=== PATIENT | female | born 1940 | race Caucasian/White ===

== ENCOUNTER 2016-10-22 13:15 | Outpatient (RCR) | payer MEDICARE, BC | END 2016-10-27 | disposition still patient (30) | LOC: WSPT | DX: I89.0 Lymphedema, not elsewhere classified (principal) | CPT/HCPCS: G8987-GP; G8988-GP ==

== ENCOUNTER 2017-01-19 10:45 | Outpatient (RCR) | payer MEDICARE, BC | END 2017-01-27 | disposition home or self-care (01) | LOC: WSPT | DX: I89.0 Lymphedema, not elsewhere classified (principal) | CPT/HCPCS: G8987-GP; G8988-GP ==

== ENCOUNTER 2017-02-11 12:15 | Outpatient (RCR) | payer MEDICARE, BC | END 2017-05-03 | disposition still patient (30) | LOC: WSPT | DX: Z48.815 Encounter for surgical aftercare following surgery on the digestive system (principal); I89.0 Lymphedema, not elsewhere classified; Z90.49 Acquired absence of other specified parts of digestive tract ==

== ENCOUNTER 2017-11-09 12:30 | Outpatient (RCR) | payer MEDICARE, BC | END 2017-11-10 | LOC: WSPT | DX: I89.0 Lymphedema, not elsewhere classified (principal); Z90.89 Acquired absence of other organs | CPT/HCPCS: G8987-GP; G8988-GP ==

== ENCOUNTER → 2017-12-16 | Outpatient (CLI) | payer MEDICARE, BC | LOC: COL.RAD 08:53 | DX: R91.8 Other nonspecific abnormal finding of lung field (principal); K76.9 Liver disease, unspecified; Z98.890 Other specified postprocedural states; Z90.11 Acquired absence of right breast and nipple | CPT/HCPCS: A9503; Q9967 ==

== ENCOUNTER 2018-02-18 10:24 | Outpatient (RCR) | payer MEDICARE, BC | END 2018-02-22 10:06 | disposition home or self-care (01) | LOC: WSPT 10:24 | DX: R60.0 Localized edema (principal); C78.02 Secondary malignant neoplasm of left lung; Z85.3 Personal history of malignant neoplasm of breast; Z87.891 Personal history of nicotine dependence | CPT/HCPCS: G8988-GP; G8989-GP ==

== ENCOUNTER 2018-04-19 09:45 | Outpatient (RCR) | payer MEDICARE, BC | END 2018-07-08 | disposition home or self-care (01) | LOC: WSPT | DX: I89.0 Lymphedema, not elsewhere classified (principal); Z85.3 Personal history of malignant neoplasm of breast; Z90.11 Acquired absence of right breast and nipple; Z92.3 Personal history of irradiation; D49.6 Neoplasm of unspecified behavior of brain; C34.90 Malignant neoplasm of unspecified part of unspecified bronchus or lung | CPT/HCPCS: G8987-GP; G8988-GP; G8989-GP ==

== ENCOUNTER → 2018-06-16 | Outpatient (CLI) | payer MEDICARE, BC | LOC: COL.RAD 12:36 | DX: C34.92 Malignant neoplasm of unspecified part of left bronchus or lung (principal); J90 Pleural effusion, not elsewhere classified; F41.9 Anxiety disorder, unspecified; J18.1 Lobar pneumonia, unspecified organism; R91.8 Other nonspecific abnormal finding of lung field; Z92.3 Personal history of irradiation; Z95.828 Presence of other vascular implants and grafts | CPT/HCPCS: Q9967 ==

== ENCOUNTER → 2018-07-30 | Outpatient (CLI) | payer MEDICARE, BC ==
[~2018-07-30] VITALS: Ht 154.9 cm; Wt 58.3 kg
[~2018-07-30] MED LIST: CARAFATE 1GM1 G PO; CLARITIN 1010 MG/TAB PO; FEMARA PO; K-DUR 10 MEQ T10 MEQ PO; LOZOL1.25 MG PO; PRILOSEC 20MG20 MG PO; SYNTHROID 0.0.025 MG PO; SYSTANE 0.4%-0.1 SOL OP; TOPROL XL 25MG25 MG PO; TRENTAL 400MG400 MG PO; VITAMIN B-6100 MG PO; VITAMINE200 PO; XANAX 0.5MG0.5 MG PO
[2018-07-30 14:01] VITALS: BP 124/69; PULSE 72
[2018-07-30 15:44] VITALS: BP 1254/65; PULSE 67
== END ==
LOC: COL.RAD 13:27
DX: C34.02 Malignant neoplasm of left main bronchus (principal); R22.31 Localized swelling, mass and lump, right upper limb

== ENCOUNTER 2018-10-20 10:45 | Outpatient (RCR) | payer MEDICARE, BC | END 2018-11-01 | disposition home or self-care (01) | LOC: WSPT | DX: I89.0 Lymphedema, not elsewhere classified (principal) | CPT/HCPCS: G8987-GP; G8988-GP ==

== ENCOUNTER 2019-01-26 12:45 | Outpatient (RCR) | payer MEDICARE, BC | END 2019-02-01 | disposition home or self-care (01) | LOC: WSPT | DX: I89.0 Lymphedema, not elsewhere classified (principal); Z85.9 Personal history of malignant neoplasm, unspecified; Z90.89 Acquired absence of other organs; Z92.21 Personal history of antineoplastic chemotherapy ==

== ENCOUNTER 2019-02-08 11:22 | Outpatient (CLI) | payer MEDICARE, BC ==
[2019-02-08] VITALS (10 sets, daily range): BP systolic 112–134; BP diastolic 58–99; PULSE 56–68; TEMP 97.7–97.9
[~2019-02-08] VITALS: Ht 154.9 cm; Wt 67.2 kg
[2019-02-08 12:24] LABS: IRON,SERUM 48 ug/dL (35-150)
[2019-02-08 12:34] LABS: TOTAL IRON BINDING CAPACITY 331 ug/dL (265-497)
[2019-02-08 13:01] LABS: FERRITIN 210 ng/mL (11-264)
== END 2019-02-08 16:18 | disposition home or self-care (01) ==
LOC: EUO 11:22
PROVIDERS: Internal Medicine Medical Oncology
DX: C34.02 Malignant neoplasm of left main bronchus (principal)
CPT/HCPCS: J1644; J7050; P9016

== ENCOUNTER 2019-04-05 11:20 | Inpatient (IN) | payer MEDICARE, BC ==
[~2019-04-05] VITALS: Ht 152.4 cm; Wt 66.7 kg
[2019-04-05] VITALS (143 sets, daily range): BP systolic 81–129; BP diastolic 51–80; PULSE 85–98; TEMP 97.5–98.2; O2SAT 73–100
[2019-04-05 12:21] LABS: HEMOGLOBIN 11.4 g/dl (12.5-16.0); MEAN CELL VOLUME 85 fl (80.0-100.0); MEAN CORPUSCULAR HEMOGLOBIN 29 pg (27.0-31.0); MEAN CORPUSCULAR HGB CONC 34 g/dl (33.0-37.0); MEAN PLATELET VOLUME 8.6 fl (7.4-10.4); PLATELET COUNT 132 K/mm3 (130-400); RED BLOOD COUNT 3.88 M/mm3 (4.10-5.30)
[2019-04-05 12:24] LABS: HEMATOCRIT 33.1 % (37.0-47.0)
[2019-04-05 12:29] LABS: ALANINE AMINOTRANSFERASE 18 U/L (9-52); ALBUMIN 3.3 gm/dL (3.5-5.0); ALKALINE PHOSPHATASE 84 U/L (50-136); ANION GAP 11 mmol/L (7-16); AST,SGOT 32 U/L (15-37); BILIRUBIN,TOTAL 0.5 mg/dL (0.0-1.0); BLOOD UREA NITROGEN 25 mg/dL (7-17); CALCIUM 8.8 mg/dL (8.4-10.2); CARBON DIOXIDE 23 mmol/L (22-30); CHLORIDE 95 mmol/L (98-107); CREATININE, serum 1.21 (0.52-1.25); GLUCOSE 115 mg/dL (74-106); LIPASE 19 U/L (23-300); POTASSIUM 3.9 mmol/L (3.4-5.0); SODIUM 130 mmol/L (137-145); TOTAL PROTEIN 6.1 gm/dL (6.4-8.2)
[2019-04-05 12:38] LABS: TROPONIN-I < 0.012 ng/mL (0.000-0.035)
[2019-04-05 12:39] LABS: C-REACTIVE PROTEIN 24.9 mg/dL (0.0-0.9)
[2019-04-05 12:43] LABS: COLLECTION METHOD CATHETER
[2019-04-05 12:47] LABS: BAND 34 % (0-10); LYMPHOCYTE 1 % (20.0-51.0); NEUTROPHILS 60 % (42.0-75.2)
[2019-04-05 12:50] LABS: ANISOCYTOSIS 1+; MICROCYTOSIS 1+; PLATELET ESTIMATE NORMAL (NORMAL)
[2019-04-05 13:00] LABS: MUCOUS Present /lpf; PH 5 (5-8); SQUAMOUS EPITHELIAL 0-2 /hpf; URINE APPEARANCE Hazy; URINE BACTERIA None Seen /hpf; URINE BILIRUBIN Negative (NEGATIVE); URINE BLOOD 2+ (NEGATIVE); URINE COLOR Yellow; URINE GLUCOSE Negative (NEGATIVE); URINE KETONE Negative (NEGATIVE); URINE LEUKOCYTE ESTERASE Negative (NEGATIVE); URINE NITRATE Negative (NEGATIVE); URINE PROTEIN(semi-quant) Negative (NEGATIVE); URINE UROBILINOGEN Negative (NEGATIVE)
--- NOTE | 2019-04-05 15:30 | NUR ---
Pt arrived via ER cart. Pt "too weak to slide over to other bed" - pt transfered using draw sheet without complications. Hypotension noted. Levophed gtt order confirmed. Pt accompanied with Hilario. Pt states she had a "fall with a soft landing the other day because I have been so weak the last few days and I dont know why". Pt denies recent travel, exposure to ill people and fevers. Pt educated to call if need to use restroom or get out of bed d/t existing weakness - pt verbally agrees, pt properlly demonstrates use of call light.
--- NOTE | 2019-04-05 17:00 | NUR ---
MD Baljit and MD Genevieve both at bedside assessing pt.
[2019-04-05 19:19] LABS: SALICYLATE < 1.0 mg/dL
--- NOTE | 2019-04-05 19:20 | NUR ---
Bedside report received from PRISCILLA Ventura. All lines and medications reviewed. Transfer of care at this time.
[2019-04-05 19:21] LABS: TROPONIN-I 0.228 ng/mL (0.000-0.035)
--- NOTE | 2019-04-05 20:00 | NUR ---
Assessment complete. Patient is awake and alert and oriented. at bedside. Lung sounds are clear with diminished bases. HR and rhythm are regular with normal S1 and S2 heard. Bowel sounds are hypoactive. Vitals are stable, will attempt to decrease levophed as long as pressures hold. Patient has eaten about half of her dinner. No complaints of nausea. Patient does have complaints of pain at 5/10 generalized ache. Not requesting any pain medication at this time. No other signs of distress. Adjusted CVP tubing and zeroed. CVP sitting at 8 consistently. Patient has no further needs at this time. Will continue to monitor. Call light within reach.
[2019-04-05] MEDS ORDERED: FERRO-TIME325 MG PO (20:01)
[2019-04-05] MEDS ORDERED: NEURONTIN600 MG/TAB PO (20:02)
[2019-04-05] MEDS ORDERED: CELEXA10 MG PO (20:03)
[2019-04-05] MEDS ORDERED: MOTRIN 200200 MG/TAB PO (20:07)
[2019-04-05] MEDS ORDERED: MUCUS RELIEF400 M1 PO (20:08)
[2019-04-05] MEDS ORDERED: NATURAL E400 IU PO (20:09)
[2019-04-05] MEDS ORDERED: VITAMIN C500 MG PO (20:10)
[2019-04-05] MEDS ORDERED: VITAMIN B-6100 MG PO (20:11)
[2019-04-05] MEDS ORDERED: SYSTANE 0.4%-0.1 SOL OP (20:26)
[2019-04-05] MEDS ORDERED: SYSTANE GEL EYE10 ML OP (20:27)
[2019-04-06] VITALS (312 sets, daily range): BP systolic 96–138; BP diastolic 60–90; PULSE 73–92; TEMP 97.5–98; O2SAT 82–100
--- NOTE | 2019-04-06 | NUR ---
Patient awake at this time. Alert and oriented. No complaints of any new pain, just her normal generalized ache. Patient is not requesting medications for that. Assessment complete. No changes from previous exam except that her bowel sounds are more active now than what they had been previously. Patient up to the commode with an assist of 1. Patient has had good urine output so far this shift. Vitals have remained stable. Will continue to decrease levophed as blood pressure allows. No further needs at this time. Will continue to monitor. Call light within reach.
--- NOTE | 2019-04-06 04:00 | NUR ---
Patient awake at this time and requesting to use the restroom. Assisted patient up to the commode. Returns to bed. Assessment complete. No changes from previous exam except that bowel sounds are now hyperactive. Vitals have remained stable. Levophed shut off at this time. No further needs. Will continue to monitor. Call light within reach.
[2019-04-06 05:13] LABS: MEAN CELL VOLUME 89 fl (80.0-100.0); MEAN CORPUSCULAR HGB CONC 34 g/dl (33.0-37.0); PLATELET COUNT 82 K/mm3 (130-400); RED BLOOD COUNT 3.33 M/mm3 (4.10-5.30); REDCELL DISTRIBUTION WIDTH-CV 15.3 % (11.5-14.5)
[2019-04-06 05:18] LABS: HEMATOCRIT 29.5 % (37.0-47.0); HEMOGLOBIN 9.9 g/dl (12.5-16.0); MEAN CORPUSCULAR HEMOGLOBIN 30 pg (27.0-31.0)
[2019-04-06 05:21] LABS: INR 1.6 (0.8-3.0); PROTHROMBIN TIME 18.5 SECONDS (9.7-12.8)
[2019-04-06 05:22] LABS: ALBUMIN 2.6 gm/dL (3.5-5.0); BILIRUBIN,TOTAL 0.4 mg/dL (0.0-1.0); CALCIUM 7.6 mg/dL (8.4-10.2); CREATININE, serum 1.09 (0.52-1.25); MAGNESIUM 1.6 mg/dL (1.6-2.3); POTASSIUM 3.6 mmol/L (3.4-5.0); TOTAL PROTEIN 5.1 gm/dL (6.4-8.2)
--- NOTE | 2019-04-06 05:35 | NUR ---
Dr Smilye in to see patient at this time.
[2019-04-06 05:39] LABS: ANISOCYTOSIS 1+; BAND 54 % (0-10); METAMYELOCYTE 2 % (0-0); NEUTROPHILS 41 % (42.0-75.2); PLATELET ESTIMATE DECREASED (NORMAL)
[2019-04-06 05:40] LABS: BURR CELLS 1+; OVALOCYTES 1+
[2019-04-06 05:51] LABS: TSH w REFLEX 0.49 uIU/mL (0.465-4.680)
--- NOTE | 2019-04-06 07:00 | NUR ---
CVP monitoring transducing through Midline IV access upon arrival - monitoring discontinued through that IV
--- NOTE | 2019-04-06 07:25 | NUR ---
Beside report given to PRISCILLA Ventura. Reviewed all lines and medications. Transfer of care.
--- NOTE | 2019-04-06 08:00 | NUR ---
Angelika Galindo, called regarding pt's chemotherapy drug for proper protocols. No chemo precautions other than single glove use and standard precautions required
--- NOTE | 2019-04-06 09:00 | NUR ---
MD Raquel unable to be reached by phone for ID consultation
--- NOTE | 2019-04-06 10:54 | NUR ---
SW attended clinical rounds to discuss discharge planning. Patient reports she lives independently at home with her . Patient's PCP is Dr Carroll and she obtains prescriptions from [facility]. Patient reports she uses a walking stick due to balance issues but no other DME is used and patient does not have any home health services. Patient will be seen by PT and OT. SW will wait for PT/OT recommendations. SW heri continue to follow.
--- NOTE | 2019-04-06 12:00 | NUR ---
1154: Kelli from ultrasound called requesting MRI imaging from [facility] requested by MD Rika. 1209: COLE Fierro called with MRI results and notified that records are being obtained from [facility] by Kelli per MD Rika request.
--- NOTE | 2019-04-06 14:41 | NUR ---
MD Raquel still unable to be reached for ID consultation
--- NOTE | 2019-04-06 14:49 | NUR ---
MD Frank called to see if MRI imaging available in [facility] for comparison - will look into it
--- NOTE | 2019-04-06 15:41 | NUR ---
MD Raquel called back and updated on pt
--- NOTE | 2019-04-06 19:20 | NUR ---
Report received by Regina العلي RN. Pt on the telephone at this time with spouse at bedside.
[2019-04-06 19:51] LABS: MEAN CELL VOLUME 88 fl (80.0-100.0); MEAN CORPUSCULAR HGB CONC 34 g/dl (33.0-37.0); MEAN PLATELET VOLUME 10.1 fl (7.4-10.4); PLATELET COUNT 94 K/mm3 (130-400); REDCELL DISTRIBUTION WIDTH-CV 15.4 % (11.5-14.5)
[2019-04-06 20:00] LABS: HEMOGLOBIN 9.8 g/dl (12.5-16.0); MEAN CORPUSCULAR HEMOGLOBIN 30 pg (27.0-31.0)
--- NOTE | 2019-04-06 20:00 | NUR ---
Pt assessment complete at this time. Pt requested use of the bedside commode. Reported left sided weakness in the upper and lower extremities although transfer and standing was steady. Pt was able to move left arm up with assistance of the right arm and then hold left arm with out assistance in the air. Left leg was noted to have slight movements on the bed but pt was unable to lift it off the bed when assessed. No deficits noted to the right side at this time. Pt requested to do personal pericare following use of the commode with nurse standing near pt for assistance when requested. Pt was noted to be wiping from back to front so a discussion was had with pt about need to wipe from front to back. Pt was assisted back into bed. Pt requested Ibuprofen at this time. Pt was notified of need to get doctors permission. Will follow up.
--- NOTE | 2019-04-06 21:30 | NUR ---
Pt was asked if left sided facial drooping was apart of baseline following parotid tumor removal. When pt smiles pts mouth is symetrical although asymetry as been noted when pts face is relaxed. Pt reported yes due to the nerves in the face "being replaced from my leg". Pt was noted to dab the left side of mouth intermittently so far this shift with kleenex.
--- NOTE | 2019-04-06 22:57 | NUR ---
Pt daughter Steffany called for an update. Specific questions were encouraged as well as an update to this nurse on what pt update had been received last. Questions regarding source of infection, pt prognosis and if any new studies returned from today. Pts daughter was able to provide the 4 digit passcode for verification to provide information. Was updated on second set of blood cultures with unknown source of infection. Possible plan for FAUZIA if second set of blood cultures returned positive. MRI completed today although physician has not discussed findings with family with likelyhood of that occuring tomorrow. Pts blood pressure has improved. Pt remains afebrile. Pt prognosis was unable to answer, will need to direct that question to physicians although daughter was reassured that we are doing everything needed in order to take care of the infection itself with use of antibiotics. Daughter thanked this nurse for time and answering questions and patients room phone number was provided.
[2019-04-07] VITALS (1062 sets, daily range): BP systolic 133–150; BP diastolic 74–96; PULSE 82–107; TEMP 97.6–98.6; O2SAT 76–100
[2019-04-07 05:28] LABS: MEAN CELL VOLUME 87 fl (80.0-100.0); MEAN CORPUSCULAR HGB CONC 34 g/dl (33.0-37.0); MEAN PLATELET VOLUME 9.5 fl (7.4-10.4); PLATELET COUNT 81 K/mm3 (130-400); RED BLOOD COUNT 3.18 M/mm3 (4.10-5.30); REDCELL DISTRIBUTION WIDTH-CV 15.5 % (11.5-14.5)
[2019-04-07 05:33] LABS: HEMATOCRIT 27.7 % (37.0-47.0); HEMOGLOBIN 9.4 g/dl (12.5-16.0); MEAN CORPUSCULAR HEMOGLOBIN 30 pg (27.0-31.0)
[2019-04-07 05:35] LABS: PROTHROMBIN TIME 11.9 SECONDS (9.7-12.8)
[2019-04-07 05:39] LABS: ALBUMIN 2.5 gm/dL (3.5-5.0); BILIRUBIN,TOTAL 0.3 mg/dL (0.0-1.0); CALCIUM 7.9 mg/dL (8.4-10.2); CREATININE, serum 0.8 (0.52-1.25); POTASSIUM 3.2 mmol/L (3.4-5.0)
[2019-04-07 05:42] LABS: BAND 34 % (0-10); LYMPHOCYTE 3 % (20.0-51.0); METAMYELOCYTE 2 % (0-0); NEUTROPHILS 59 % (42.0-75.2); PLATELET ESTIMATE DECREASED (NORMAL)
--- NOTE | 2019-04-07 07:15 | NUR ---
Bedside shift report received from PRISCILLA Yoder. Patient is awake, alert, and responds appropriately. Full assessment completed. Call light and personal items within reach. Bed in lowest position.
--- NOTE | 2019-04-07 07:20 | NUR ---
Bedside report provided to Diane WELLS. Pt resting in bed at this time with television on and sunglasses on which pt has had in place all night in order to "block out the light and keep the air from making dry eyes worse".
--- NOTE | 2019-04-07 10:42 | NUR ---
Initial visit attempt; No response from patient; Gin Inspector said a blessings.
--- NOTE | 2019-04-07 11:00 | NUR ---
SW attended clinical rounds. Patient was seen by PT/OT. They report that patient may require post acute rehab. SW reported this information to patient and provided the Medicare.gov resource list for intermediate facilities. SW will continue to follow.
--- NOTE | 2019-04-07 12:00 | NUR ---
Patient drinks entire vanilla Ensure as a snack. Patient states she will eat lunch a little later.
--- NOTE | 2019-04-07 19:00 | NUR ---
Bedside shift report given to PRISCILLA Yoder. Patient is sitting up in bed with complaints of left hand pain and would like some Tylenol. Other than that, patient has no complaints or concerns and is in no apparent distress at this time. Call light and person items within reach. Bed in lowest position.
--- NOTE | 2019-04-07 19:00 | NUR ---
Bedside report received from Diane WELLS. Pt resting at this time in bed with spouse at bedside. Pt has sunglasses on and is able to make wants and needs known to staff members. Pt requested an ensure at this time although plan was discussed to take a Carafate, due to having an empty stomach at this time prior to consumption.
[2019-04-08] VITALS (293 sets, daily range): BP systolic 115–150; BP diastolic 62–93; PULSE 75–101; TEMP 97.6–98.6; O2SAT 86–100
--- NOTE | 2019-04-08 | NUR ---
Pt has demonstrated ability to make wants and needs known to staff with use of call light so far this shift. Is resting in bed at this time.
--- NOTE | 2019-04-08 03:00 | NUR ---
Pt is resting in bed sleeping. When this nurse has entered the room for various reasons/ cares pt will arouse to name and follow directions although appears to fall back asleep very quickly following.
[2019-04-08 05:25] LABS: HEMOGLOBIN 10.4 g/dl (12.5-16.0); MEAN CELL VOLUME 87 fl (80.0-100.0); MEAN CORPUSCULAR HEMOGLOBIN 29 pg (27.0-31.0); MEAN CORPUSCULAR HGB CONC 33 g/dl (33.0-37.0); MEAN PLATELET VOLUME 9.2 fl (7.4-10.4); PLATELET COUNT 108 K/mm3 (130-400); RED BLOOD COUNT 3.62 M/mm3 (4.10-5.30); REDCELL DISTRIBUTION WIDTH-CV 15.7 % (11.5-14.5)
[2019-04-08 05:29] LABS: INR 0.9 (0.8-3.0); PROTHROMBIN TIME 10.9 SECONDS (9.7-12.8)
[2019-04-08 05:34] LABS: ALBUMIN 2.8 gm/dL (3.5-5.0); BILIRUBIN,TOTAL 0.4 mg/dL (0.0-1.0); CALCIUM 8.5 mg/dL (8.4-10.2); CREATININE, serum 0.71 (0.52-1.25); POTASSIUM 3.5 mmol/L (3.4-5.0); TOTAL PROTEIN 5.6 gm/dL (6.4-8.2)
[2019-04-08 05:38] LABS: HEMATOCRIT 31.5 % (37.0-47.0)
--- NOTE | 2019-04-08 07:05 | NUR ---
Bedside report received from PRISCILLA Yoder.
--- NOTE | 2019-04-08 07:05 | NUR ---
Bedside report provided to Nadia Sultana RN. Pt resting in bed at this time.
[2019-04-08 07:44] LABS: BAND 16 % (0-10); LYMPHOCYTE 7 % (20.0-51.0); NEUTROPHILS 75 % (42.0-75.2)
[2019-04-08 07:45] LABS: PLATELET ESTIMATE DECREASED (NORMAL)
--- NOTE | 2019-04-08 08:40 | NUR ---
Attempted to call Jazmin for report.
--- NOTE | 2019-04-08 08:51 | NUR ---
Patient is moving upstairs this morning. SW will follow up with patient about SNF later today.
--- NOTE | 2019-04-08 09:12 | NUR ---
Dr. Smiley at bedside for thoracentesis. Report given to PRISCILLA Wu.
--- NOTE | 2019-04-08 09:50 | NUR ---
Pt taken to room 328, via wheelchair by PRISCILLA Douglas, all belongings sent with patient.
--- NOTE | 2019-04-08 10:25 | NUR ---
Report from Nadia in ICU. Patient to room 328 with Stella in AIV. Patient up to the bathroom, loose stool & some incontience. new brief applied. Patient steady on her feet, but assistance needed for direction.Will place her on fall precautions. Dypnea with exertion. L.thoracentesis site some bleeding noted, enenforced with gauze & tegaderm. Lungs wheezy. Vss on room air. Scds ble. Midline with IV per orders. Port not being used, concerns for infection. Will closely montior.
[2019-04-08 10:28] LABS: GLUCOSE,PLEURAL FLUID 107 mg/dL
[2019-04-08 10:29] LABS: TOTAL PROTEIN,PLEURAL FLUID < 2.0 gm/dL
[2019-04-08 10:38] LABS: PLEURAL FLUID RBC 3000 /mm3 (0-0); PLEURAL FLUID WBC 882 /mm3
[2019-04-08 10:54] LABS: PLEURAL FLUID APPEARANCE CLEAR; PLEURAL FLUID COLOR YELLOW
--- NOTE | 2019-04-08 11:38 | NUR ---
rounded. NEW DRESSING AGAIN APPLIED TO THORACENTESIS SITE. AWARE OF DRAIANGE. PATIETN TOLERATING BREAKFAST TRAY. FAMILY AT BEDSIDE.
--- NOTE | 2019-04-08 14:27 | NUR ---
rounded, orders obtained. Consent obtained. Only clears at this time. Patient worked with PT and new dressing applied to thoracentesis site. Gauze & steristrips & foam tape
--- NOTE | 2019-04-08 19:24 | NUR ---
Patient has done well post port removal. Gauze dressing intact to L.chest. Thoracentesis site drg intact, no more drainage noted. Midline with Ivf antibiotics per orders. Tolerate dinner. Daughter at bedside. Vss, tele on. Scds ble. Bedside report to Teresa WELLS
--- NOTE | 2019-04-08 21:00 | NUR ---
Pt helped up to bathroom with gait belt and walking stick. Well tolerated. VSS. Pt become HEARN with audible insp/exp wheezes. Pt preformed PO care and then was assisted back to bed. L hand has 2+ edema. Pt c/o pain in L arm. LJ midline with IVF infusing. 1+ edema to BLE. Abdomen rounded, soft. BS hyperactive. Voiding clear, yellow urine. Pt reports nonproductive cough. Daughter at bedside. No needs voiced.
--- NOTE | 2019-04-08 23:00 | NUR ---
Pt requested pain medication for L arm pain. No acute distress noted. Daughter is staying the night.
[2019-04-09] VITALS (7 sets, daily range): BP systolic 136–177; BP diastolic 63–90; PULSE 73–100; TEMP 97.4–98.5
--- NOTE | 2019-04-09 05:53 | NUR ---
Pt up to bathroom with 1 assist. Voiding clear yellow urine. Small, loose BM. Pt c/o pain 6/10 in L arm after ambulation. PRN pain medication given. No other needs noted this AM.
[2019-04-09 06:41] LABS: MEAN CELL VOLUME 88 fl (80.0-100.0); MEAN CORPUSCULAR HGB CONC 33 g/dl (33.0-37.0); MEAN PLATELET VOLUME 9.3 fl (7.4-10.4); PLATELET COUNT 114 K/mm3 (130-400); RED BLOOD COUNT 3.42 M/mm3 (4.10-5.30); REDCELL DISTRIBUTION WIDTH-CV 16.1 % (11.5-14.5)
[2019-04-09 06:42] LABS: HEMATOCRIT 30.1 % (37.0-47.0); HEMOGLOBIN 9.9 g/dl (12.5-16.0); MEAN CORPUSCULAR HEMOGLOBIN 29 pg (27.0-31.0)
[2019-04-09 06:51] LABS: CALCIUM 8.4 mg/dL (8.4-10.2); CREATININE, serum 0.54 (0.52-1.25); MAGNESIUM 1.8 mg/dL (1.6-2.3); POTASSIUM 3.9 mmol/L (3.4-5.0)
[2019-04-09 13:04] LABS: ANISOCYTOSIS 1+; BAND 6 % (0-10); BASOPHIL 1 % (0-2); HYPOCHROMIA 1+; LYMPHOCYTE 7 % (20.0-51.0); NEUTROPHILS 82 % (42.0-75.2); PLATELET ESTIMATE NORMAL (NORMAL)
--- NOTE | 2019-04-09 14:14 | NUR ---
NEW BAG OF IVF NS @ 50/CC HUNG THROUGH MIDLINE IN LEFT UPPER ARM. PT WAS GIVEN 20 MEQ OF K+ WITH PEPSI FOLLOWING THE PROTOCOL. SPUTUM WAS SENT THIS AM. PT IS VERY PLEASANT AND IS VERY KNOWLEDGEABLE ABOUT CURRENT EVENTS. DAUGHTER PRESENT.PT REPORTS THAT SHE HAS HAD URINE OUTPUT AND THIS LAST TIME SHE HAD DIARRHEA WITH THAT.
--- NOTE | 2019-04-09 17:35 | NUR ---
Assumed care of patient at 1300. Bedside report received from PRISCILLA Layton. Shift assessment completed. Patient complains of general aches and pain related to age and cancer. States that the norco has helped tremendously and she has been very comfortable with her pain at a baseline of 5/10. Patient has no further complaints at this time. Call light in reach.
--- NOTE | 2019-04-09 21:52 | NUR ---
RESTING QUIETLY. NORCO FOR GENERALIZED PAIN. LUNG SOUNDS DIMINISHED.
--- NOTE | 2019-04-10 00:22 | NUR ---
PT HAD ELEVATED BLOOD PRESSSURE. SYSTOLIC >170. PT CONCERNED BUT ASYMPTOMATIC. HYDRALAZINE ADMINISTERED I.V.
[2019-04-10 03:03] VITALS: BP 140/66; PULSE 95; TEMP 97.7
--- NOTE | 2019-04-10 05:06 | NUR ---
RESTING QUIETLY. NORCO FOR PAIN. PT'S BLOOD PRESSURE CAME DOWN AFTER HYDRALAZINE ADMINISTRATION.
[2019-04-10 06:20] LABS: MEAN CELL VOLUME 87 fl (80.0-100.0); MEAN CORPUSCULAR HGB CONC 33 g/dl (33.0-37.0); MEAN PLATELET VOLUME 9.2 fl (7.4-10.4); PLATELET COUNT 147 K/mm3 (130-400); RED BLOOD COUNT 3.35 M/mm3 (4.10-5.30); REDCELL DISTRIBUTION WIDTH-CV 15.9 % (11.5-14.5)
[2019-04-10 06:22] LABS: HEMATOCRIT 29.2 % (37.0-47.0); HEMOGLOBIN 9.7 g/dl (12.5-16.0); MEAN CORPUSCULAR HEMOGLOBIN 29 pg (27.0-31.0)
[2019-04-10 06:36] LABS: CALCIUM 8.3 mg/dL (8.4-10.2); CREATININE, serum 0.54 (0.52-1.25); MAGNESIUM 1.7 mg/dL (1.6-2.3); POTASSIUM 4.1 mmol/L (3.4-5.0)
[2019-04-10 07:29] LABS: BAND 23 % (0-10); LYMPHOCYTE 6 % (20.0-51.0); METAMYELOCYTE 3 % (0-0); NEUTROPHILS 60 % (42.0-75.2); PLATELET ESTIMATE NORMAL (NORMAL)
[2019-04-10 07:50] VITALS: BP 153/68; PULSE 90; TEMP 98
--- NOTE | 2019-04-10 08:30 | NUR ---
Patient resting in bed, family at bedside. Patient is easily rousable and alert and oriented while awake. Patient requests PRN pain medication for pain in back/abdomen, meds administered per order. Patient denies further needs at this time, call light within reach.
[2019-04-10 12:00] VITALS: BP 149/66; PULSE 97; TEMP 98
[2019-04-10 15:55] VITALS: BP 163/80; PULSE 98; TEMP 98.3
[2019-04-10 17:24] VITALS: BP 156/72
[2019-04-10 20:18] VITALS: BP 185/93; PULSE 100; TEMP 98.2
[2019-04-11] VITALS (7 sets, daily range): BP systolic 131–152; BP diastolic 52–78; PULSE 88–109; TEMP 97.8–98.7
--- NOTE | 2019-04-11 05:59 | NUR ---
PT IN BED. NO c/o N/V. NORCO FOR PAIN.
--- NOTE | 2019-04-11 08:00 | NUR ---
PATIENT IS DROWSY AND RESTING IN BED THIS MORNING. PATIENT AROUSES EASILY TO NAME. PATIENT IS A&OX4. VSS. BOWEL SOUNDS ACTIVE ALL FOUR QUADRANTS. PATIENT STATES THAT SHE FEELS SHORT OF BREATH WITH ACTIVITY. ALL LUNG HALEY CLEAR UPON AUSCULTATION. LEFT UPPER BACK THORACENTESIS SITE DRESSED WITH GAUZE & OCCLUIVE TAPE DRESSING. LEFT CHEST PORTACATH REMOVAL SITE DRESSED WITH GAUZE AND HYPAFIX DRESSING WITH DRAINAGE PRESENT. MIDLINE TO LUE. NON-PITTING EDEMA TO LEFT HAND NOTED. NON-PITTING EDEMA TO BLE. SCD'S TO BLE. POSITIVE PEDAL PULSES EQUAL BILATERALLY. CALL LIGHT WITHIN REACH. DAUGHTER PRESENT AT THE BEDSIDE. PATIENT DENIES ANY OTHER NEEDS AT THIS TIME.
--- NOTE | 2019-04-11 08:25 | NUR ---
midline intact left upper arm. Patient's arm is edematous. Swelling noted distal of PICC line and upper forearm. Alexi wrap is very tight. Alexi wraps removed. Patient denies pain in left arm. Contacted patient's primary care nurse and report given regarding arm swelling.
[2019-04-11 09:43] LABS: HEMOGLOBIN 10.4 g/dl (12.5-16.0); MEAN CELL VOLUME 88 fl (80.0-100.0); MEAN CORPUSCULAR HEMOGLOBIN 30 pg (27.0-31.0); MEAN CORPUSCULAR HGB CONC 34 g/dl (33.0-37.0); MEAN PLATELET VOLUME 8.7 fl (7.4-10.4); PLATELET COUNT 179 K/mm3 (130-400); REDCELL DISTRIBUTION WIDTH-CV 16.4 % (11.5-14.5)
[2019-04-11 09:54] LABS: CALCIUM 8.8 mg/dL (8.4-10.2); CREATININE, serum 0.56 (0.52-1.25); POTASSIUM 3.4 mmol/L (3.4-5.0)
[2019-04-11 09:57] LABS: HEMATOCRIT 30.7 % (37.0-47.0)
[2019-04-11 11:00] LABS: BAND 5 % (0-10); LYMPHOCYTE 6 % (20.0-51.0); NEUTROPHILS 78 % (42.0-75.2)
[2019-04-11 11:01] LABS: PLATELET ESTIMATE NORMAL (NORMAL)
--- NOTE | 2019-04-11 15:24 | NUR ---
RUSSELL attended clinical rounds. The hospitalist would like to see how the patient does with PT today and their recommendations. PT worked with the patient and they are recommending that the patient would be safe to return home and to continue outpatient therapy. RUSSELL then followed up with the patient and patient's daughter. The patient reports that she would like to return home with her upon discharge. She states that she was receiving outpatient therapy for her lymphedema at [facility] and that she would be interested in resuming those services upon discharge and adding OT. She states that she would like to set up her own appointments. RUSSELL to inform the hospitalist or PA for a script. RUSSELL to continue to follow.
--- NOTE | 2019-04-11 19:23 | NUR ---
Report received from PRISCILLA Lovell.
[2019-04-12 04:00] VITALS: BP 149/74; PULSE 86; TEMP 98
--- NOTE | 2019-04-12 05:24 | NUR ---
Patient has rested well throughout the night. Denies needs. Uses call light appropriately for toileting needs. Midline pulled by malt house loader. Patient tolerated this well. Will continue to monitor.
--- NOTE | 2019-04-12 07:14 | NUR ---
Report given to PRISCILLA Lovell.
--- NOTE | 2019-04-12 08:00 | NUR ---
PATIENT IS RESTING IN BED THIS MORNING WITH HER BREAKFAST TRAY AT THE BEDSIDE. PATIENT IS A&OX4. VSS. TELE IN PLACE. GENERALIZED WEAKNESS NOTED. BOWEL SOUNDS ACTIVE ALL FOUR QUADRANTS. PATIENT TOLERATING DIET WITHOUT ANY COMPLAINTS OF N/V. PATIENT STATES THAT SHE GETS SHORT OF BREATH WITH ACTIVITY. ALL LUGN CLEAR UPON AUSCULTATION. LEFT UPPER BACK THORACENTESIS SITE DRESSED WITH GAUZE & OCCLUSIVE TAPE AND IS CD&I. LEFT CHEST OLD PORTACATH SITE DRESSED WITH GAUZE & HYPAFIX WITH LARGE AMOUNTS OF DRAINAGE PRESENT ON SAMANTHA DRESSING. LUE MIDLINE REMOVAL SITE DRESSED WITH TEGADERM WITH SCANT AMOUNT OF BLOODY DRAINAGE PRESENT. CALL LIGHT WITHIN REACH. PATIENT DENIES ANY OTHER NEEDS AT THIS TIME.
[2019-04-12 08:16] VITALS: BP 146/54; PULSE 76; TEMP 98.3
[2019-04-12 08:48] LABS: CREATININE, serum 0.54 (0.52-1.25)
[2019-04-12] MEDS ORDERED: ELIQUIS 5MG PO (11:37)
[2019-04-12] MEDS ORDERED: NORCO 325 MG-51 TAB PO (11:44)
--- NOTE | 2019-04-12 12:16 | NUR ---
First visit from the b2b outside sales representative. prayed with patient. No other needs right now.
[2019-04-12 12:26] VITALS: BP 121/54; PULSE 94; TEMP 98.2
--- NOTE | 2019-04-12 13:58 | NUR ---
RUSSELL attended clinical rounds. The patient is to discharge back home with her today, 04/12, and resume outpatient therapy. SW contacted the patient's to inform. SW also presented and explained the IM form to the patient. The patient verbalized understanding, signed, and she was provided a copy. No additional needs at this time.
--- NOTE | 2019-04-12 14:28 | NUR ---
PATIENT'S PORTACATH INCISION DRESSING REMOVED AND REPLACED WITH GAUZE & HYPAFIX. PATIENT PERSONAL BELONGINGS GATHERED. DISCHARGE INSTRUCTIONS REVIEWED WITH PATIENT AND . ALL QUESTIONS ANSWERED. PATIENT TAKEN TO PERSONAL VEHICLE VIA WHEELCHAIR BY SURGICAL STAFF. PATIENT DISCHARGED.
== END 2019-04-12 14:28 | disposition home or self-care (01) | DRG 314 ==
LOC: COL.ER 11:20 → JCC 13:29 → ICU 13:29 → JCC 04-08 09:55
PROVIDERS: Emergency Medicine; Internal Medicine; Internal Medicine Pulmonary Disease; Physician Assistant; Surgery; ADMIT Hospitalist
PROC: 05HY33Z Insertion of Infusion Device into Upper Vein, Percutaneous Approach (ICD-10-PCS; 2019-04-05)
PROC: 0JPT0WZ Removal of Totally Implantable Vascular Access Device from Trunk Subcutaneous Tissue and Fascia, Open Approach (ICD-10-PCS; 2019-04-08)
PROC: 0W9B00Z Drainage of Left Pleural Cavity with Drainage Device, Open Approach (ICD-10-PCS; principal; 2019-04-08 16:15)
DX: T80.211A Bloodstream infection due to central venous catheter, initial encounter (principal); A41.9 Sepsis, unspecified organism; R65.21 Severe sepsis with septic shock; A28.0 Pasteurellosis; C34.90 Malignant neoplasm of unspecified part of unspecified bronchus or lung; E87.1 Hypo-osmolality and hyponatremia; C79.31 Secondary malignant neoplasm of brain; J90 Pleural effusion, not elsewhere classified; E87.8 Other disorders of electrolyte and fluid balance, not elsewhere classified; K21.9 Gastro-esophageal reflux disease without esophagitis; E87.6 Hypokalemia; R53.81 Other malaise; D69.6 Thrombocytopenia, unspecified; R29.810 Facial weakness; E03.9 Hypothyroidism, unspecified; Z85.3 Personal history of malignant neoplasm of breast; Z90.710 Acquired absence of both cervix and uterus; Z87.891 Personal history of nicotine dependence; Z92.3 Personal history of irradiation
CPT/HCPCS: 99223-AI; 99232-AI; 99233-AI; 99239; A9585; C1751; C1892; J0360; J0696; J1644; J1650; J1720; J2060; J2543; J3370; J7030; J7050; J7060; J8540

== ENCOUNTER 2019-04-20 12:45 | Outpatient (RCR) | payer MEDICARE, BC ==
[~2019-04-20 12:45] MED LIST changes: +CELEXA10 MG PO; +ELIQUIS 5MG PO; +FERRO-TIME325 MG PO; +MOTRIN 200200 MG/TAB PO; +MUCUS RELIEF400 M1 PO; +NATURAL E400 IU PO; +NEURONTIN600 MG/TAB PO; +NORCO 325 MG-51 TAB PO; +SYSTANE GEL EYE10 ML OP; +VITAMIN C500 MG PO
== END 2019-05-24 ==
LOC: WSPT
DX: I89.0 Lymphedema, not elsewhere classified (principal)

== ENCOUNTER 2019-05-04 12:00 | Outpatient (RCR) | payer MEDICARE, BC | END 2019-07-26 | LOC: WSPT | DX: R53.81 Other malaise (principal) ==

== ENCOUNTER 2019-09-14 13:15 | Outpatient (RCR) | payer MEDICARE, BC | END 2019-10-25 | disposition home or self-care (01) | LOC: WSPT | DX: I89.0 Lymphedema, not elsewhere classified (principal) ==

== ENCOUNTER 2020-01-06 13:00 | Outpatient (RCR) | payer MEDICARE, BC ==
[~2020-01-06] VITALS: Ht 152.4 cm; Wt 72.3 kg
[~2020-01-06 13:00] MED LIST changes: +COMPAZINE 110 MG/TAB PO; +MURO 128 5% OPH15 ML OP; +PROTANDIM PO; +REFRESH TEARS 330 ML OP; +TAMIFLU30 MG PO; +TYLENOL 500MG500 MG PO; +VITAMIN E PO; +ZITHROMAX 250M250 MG PO
[2020-01-06 13:48] VITALS: BP 106/52; PULSE 90; TEMP 97.9
[2020-01-06 14:03] VITALS: BP 100/69; PULSE 92; TEMP 97.8
[2020-01-06 14:18] VITALS: BP 102/52; PULSE 88; TEMP 97.8
[2020-01-06 15:08] VITALS: BP 100/47; PULSE 85; TEMP 97.4
== END 2020-01-06 15:09 | disposition home or self-care (01) ==
LOC: EUO 13:00
DX: C34.02 Malignant neoplasm of left main bronchus (principal)
CPT/HCPCS: J7050; P9037

== ENCOUNTER → 2020-01-25 | Outpatient (RCR) | payer MEDICARE, BC | END | disposition home or self-care (01) | LOC: WSPT | DX: I89.0 Lymphedema, not elsewhere classified (principal); Z85.3 Personal history of malignant neoplasm of breast ==

== ENCOUNTER 2020-02-04 13:08 | Outpatient (RCR) | payer MEDICARE, BC ==
--- NOTE | 2020-02-03 17:13 | NUR ---
PT CALLED AND NOTIFIED TO ARRIVE AT 1300 FOR PLATELET INFUSION. PT EDUCATED THAT SHE WILL GO TO MEDICAL FLOOR FOR HER INFUSION TOMORROW. PT AWARE.
[2020-02-04] VITALS (7 sets, daily range): BP systolic 95–122; BP diastolic 50–74; PULSE 75–86; TEMP 98.4–98.5
--- NOTE | 2020-02-04 15:22 | NUR ---
PLATELAE TRANSFUSION INITIATED PER HOSPITAL PROTOCOL @ 1518. UNIT VERIFIED BY RN X2. INFUSING THROUGH 20G PERIPHEAL IV SITE IN LEFT FOREARM. SEE FLOWSHEET FOR FVS OBTAINED AT BEGINNING OF TRANSFUSION. SEE EMAR FOR PRE MEDICATION GIVEN ORDERED. PATIENT A/O X4. DENIES C/O PAIN OR DISCOMFORT. NO NAUSEA OR VOMITING. LUNG SOUNDS CTA THROUGHOUT. HEART RATE REGULAR TO AUSCULTATION. COMFORT MEASURES ADDRESSED. LAYING IN BED WITH WARM BLANKET PROVIDED REQUESTED. ENCOURAGED TO VOICE NEEDS OR CONCERNS NEEDED. ORIENTED TO ROOM.
--- NOTE | 2020-02-04 17:53 | NUR ---
PLATELET TRANSFUSION COMPLETED @ 1730. SEE FLOW SHEET FOR FVS OBTAINED WNL. PATIENT HAS NO C/O PAIN OR DISCOMFORT. LUNG SOUNDS CTA. NO CHEST PAIN OR SOA. AMBULATED TO BATHROOM AND WC WITH STEADY GAIT. EDUCATION ON THROMBOCYTOPENIA REVIEWED WITH PATIENT TO INCLUDE RISK FOR BLEEDING. ALL QUESTIONS ANSWERED. PATIENT LEFT UNIT VIA WC @ 7613 ACCOMPANIED BY THIS NURSE. dAUGHTER ABHIJIT PRESENT FOR HOME SCHOOL COORDINATOR PILE TRIMMER.
== END 2020-02-04 17:48 | disposition home or self-care (01) ==
LOC: MEDICAL 13:08 → EUO 13:08
DX: C34.02 Malignant neoplasm of left main bronchus (principal); D46.22 Refractory anemia with excess of blasts 2
CPT/HCPCS: OP; J7050; P9037

== ENCOUNTER 2020-02-08 15:30 | Inpatient (IN) | payer MEDICARE, BC ==
[2020-02-08] VITALS (11 sets, daily range): BP systolic 103; BP diastolic 51; PULSE 94; TEMP 98.3; O2SAT 42–96
[~2020-02-08] VITALS: Ht 152.4 cm; Wt 53.1 kg
[2020-02-08 16:33] LABS: COLLECTION METHOD CLEAN CATCH
[2020-02-08 16:39] LABS: MEAN CELL VOLUME 92 fl (80.0-100.0); MEAN CORPUSCULAR HGB CONC 33 g/dl (33.0-37.0); RED BLOOD COUNT 1.84 M/mm3 (4.10-5.30); REDCELL DISTRIBUTION WIDTH-CV 14.6 % (11.5-14.5)
[2020-02-08 16:40] LABS: MEAN CORPUSCULAR HEMOGLOBIN 30 pg (27.0-31.0); MUCOUS Present /lpf; PH 5 (5-8); URINE APPEARANCE Hazy; URINE BACTERIA Rare /hpf; URINE BILIRUBIN Negative (NEGATIVE); URINE BLOOD Negative (NEGATIVE); URINE COLOR Yellow; URINE GLUCOSE Negative (NEGATIVE); URINE KETONE Negative (NEGATIVE); URINE LEUKOCYTE ESTERASE Negative (NEGATIVE); URINE NITRATE Negative (NEGATIVE); URINE PROTEIN(semi-quant) 1+ (NEGATIVE); URINE UROBILINOGEN Negative (NEGATIVE)
[2020-02-08 16:41] LABS: HEMATOCRIT 16.9 % (37.0-47.0); HEMOGLOBIN 5.5 g/dl (12.5-16.0); PLATELET COUNT 4 K/mm3 (130-400)
[2020-02-08 17:02] LABS: BASOPHIL 9 % (0-2); EOSINOPHIL 4 % (0-4); LYMPHOCYTE 64 % (20.0-51.0); MYELOCYTE 1 % (0-0); NEUTROPHILS 19 % (42.0-75.2); PLATELET ESTIMATE DECREASED (NORMAL)
[2020-02-08 17:13] LABS: ALBUMIN 3.2 gm/dL (3.5-5.0); BILIRUBIN,TOTAL 0.4 mg/dL (0.0-1.0); CALCIUM 9.1 mg/dL (8.4-10.2); CREATININE, serum 0.74 (0.52-1.25); POTASSIUM 4.4 mmol/L (3.4-5.0); TOTAL PROTEIN 5.9 gm/dL (6.4-8.2)
[2020-02-08] MEDS ORDERED: KLOR-CON SPRIN10 MEQ PO (18:03)
[2020-02-08] MEDS ORDERED: CARAFATE 1GM1 G (18:04)
[2020-02-08] MEDS ORDERED: IRON 27 MG (18:05)
[2020-02-08] MEDS ORDERED: B-12 500 MCG (18:06)
--- NOTE | 2020-02-08 20:30 | NUR ---
Pt report receieved from Paige Cline in ED.
--- NOTE | 2020-02-08 20:40 | NUR ---
Pt arrived to ICU bed 07 X1 staff member. Pt able to walk from stretcher to bed. Gait slow but steady. No current pain at this time. Has hospital gown and non slick socks in place with personal pants on underneath. Pt reports preference of briefs due to convenience of throwing away on a daily basis, although denies any incontinent concerns. VS assessed and documented.
[2020-02-08] MEDS ORDERED: FERROUS SU325 MG/TAB PO (21:10)
[2020-02-08] MEDS ORDERED: LEVAQUIN 5500 MG/TA1 PO (21:12)
[2020-02-09] VITALS (464 sets, daily range): BP systolic 83–106; BP diastolic 43–56; PULSE 75–95; TEMP 98.1–98.4; O2SAT 61–100
--- NOTE | 2020-02-09 07:15 | NUR ---
Bedside report provided to Brii and gage.
[2020-02-09 08:36] LABS: PATHOLOGY DIFF REVIEW OK
--- NOTE | 2020-02-09 11:43 | NUR ---
RUSSELL met with the patient to discuss discharge plan. The patient lives in [place] with her , Joe (homeph#[phone], cellph#[phone]). She reports independence with ADLs and has a walking stick. The patient's PCP is Dr. Johnathon Carroll and she receives her medications at [facility]. She reports no difficulties obtaining her meds. The patient does not have advanced directives completed, but she was interested in obtaining a form for DPOA-HC. RUSSELL provided. The patient would like to return home upon discharge. The patient has lung cancer with mets to the brain. A palliative care consult was ordered. RUSSELL attempted to contact the patient's to update. The patient's daughter, Steffany (cellph#[phone]), answered the phone. RUSSELL provided Steffany with an update. Steffany confirmed that the patient has been independent with everything so far. Steffany states that she has been staying with the patient and her since the COVID outbreak. She did have questions about hospice. RUSSELL answered questions and informed her about how a palliative care consult was ordered. Steffany reports that she would be open to hospice for the patient, if the patient was interested in it. RUSSELL collaborated with Palliative Care Nurse, Angelika. A patient/family conference call was scheduled at 1300. RUSSELL and Angelika then met with the patient to update about the patient/family conference call and to discuss her goals of care. The patient reports that she does not feel like she needs hospice, but if her daughter wanted it, then would be open to it. The patient expressed how she has found comfort in her kan. The patient would like to return home. RUSSELL to continue to follow.
--- NOTE | 2020-02-09 11:52 | NUR ---
Haylie Sultana with cloud services architect and I met with pt at bedside. She reported that she was anxious to go home and would be happy to leave today. She did recieve a phone call from her son in [place] during our visit as well. She is aware that there is no more treatment available for her to manage her cancer. She did recieve some blood products last night and is to recieve more today. She is on neutropenic precautions due to a WBC of 1.3, hbg 5.5 and her platelets are down to 4. She lives at home with her in [place] and her daughter Steffany is also staying with now and working from home. We did talk a little bit about hospice services but the pt was quick to say that she didn't really think she needed hospice. Later on in the conversation though she asked what her daughter had said about hospice and then said she would allow hospice if her daughter and thought it might help them. A conference call was set up for 1pm with Steffany and Joe. Dr Mckeon was advised of this discussion and planned phone call with family.
--- NOTE | 2020-02-09 14:26 | NUR ---
RUSSELL and Palliative Care Nurse, Angelika, met with the patient in her room for the patient/family conference call. The patient's (Joe), daughter (Steffany), and son (Alfredo) were on speaker phone. The patient reports that she really does not want to be a part of the conversation, but was okay with us having the discussion in her room. Angelika discussed goals of care and hospice. The patient's family report that they would be interested in pursuing comfort measures at home and having the extra support from a hospice agency upon discharge. Angelika reviewed Medicare.gov's list of hospice agencies that serve [place]. The patient's family chose [facility]. The patient was agreeable to the plan. The patient states that she feels comfortable returning back home, via private vehicle. The hospitalist was updated on the patient and her families decision. Angelika plans to contact and fax a referral to [facility]. RUSSELL awaiting their screen.
--- NOTE | 2020-02-09 14:31 | NUR ---
Family phone call completed this afternoon with , son, and daughter on line. Pt rc speak with family but stated that "Dying is kind of private and I am choosing just to listen to this call but not to actively participate". She did give her family permission to use hospice services in the home for their support and family seemed very comfortable with using hospice care. they are not sure that they will need equipment but will discuss further with hospice agency when they call. I did contact [facility] and spoke with Varghese ma intake nurse with the referral after I spoke with Dr Mckeon. We are anticipating a discharge tomorrow to home via private care. Pt would like to get platelets here first before leaving and all family members were advised that hospice will not do blood transfuions for hospice care and they verbalized understanding. Contact information was provided and family is expecting a call from [facility].
--- NOTE | 2020-02-09 14:57 | NUR ---
Records and insurance information was faxed to [facility].
[2020-02-09 15:23] LABS: MEAN CORPUSCULAR HGB CONC 34 g/dl (33.0-37.0); RED BLOOD COUNT 2.74 M/mm3 (4.10-5.30); REDCELL DISTRIBUTION WIDTH-CV 17.5 % (11.5-14.5)
[2020-02-09 15:33] LABS: HEMATOCRIT 23.3 % (37.0-47.0); HEMOGLOBIN 7.9 g/dl (12.5-16.0); MEAN CELL VOLUME 85 fl (80.0-100.0); MEAN CORPUSCULAR HEMOGLOBIN 29 pg (27.0-31.0); PLATELET COUNT 4 K/mm3 (130-400)
[2020-02-09 15:34] LABS: CALCIUM 8.2 mg/dL (8.4-10.2); CREATININE, serum 0.63 (0.52-1.25); POTASSIUM 4.1 mmol/L (3.4-5.0)
--- NOTE | 2020-02-09 17:28 | NUR ---
PATIENT TO BE TRANSFERRED TO MEDICAL, REPORT TO YORDAN RN. PT TO WHEELCHAIR WITH ASSIST AND TO [facility]. ASSIST TO BATHROOM, THEN TO BED. MADE COMFORTABLE IN BED, CALL LIGHT WITHIN REACH. RN IN ROOM TO GREET PATIENT.
--- NOTE | 2020-02-09 17:54 | NUR ---
PT ARRIVED TO FLOOR WITH BELONGINGS, WATER BROUGHT INTO ROOM, PT ORIENTED TO ROOM, CALL LIGHT WITHIN REACH, BED IN LOWEST POSITION, NO OTHER NEEDS AT THIS TIME.
--- NOTE | 2020-02-09 18:42 | NUR ---
PT COMPLAINING OF PAIN IN LOWER BACK. 1 NORCO BROUGHT IN INITIALLY, PRN DOSE STATES 1-2TAB. PT STATED SHE WOULD NEED THE SECOND TAB. PT TOOK FIRST TAB, I WENT TO GET SECOND TAB AND THEN ADMINISTERED IT. 2 TAB NORCO TOTAL ADMINISTERED.
--- NOTE | 2020-02-09 19:15 | NUR ---
Received report from Annita. Seen patient awake, sitting on bed. She is alert and oriented. She was asking for Vanilla flavor of ensure. On Reverse isolation. On right arm restrict. With INT on left AC. Call light within reach.
--- NOTE | 2020-02-09 23:00 | NUR ---
Assisted patient to the restroom. She has her own wooden cane. She has a steady gait. She asked for a toothbrush and toothpaste and she was able to do oral care independently. She states she needs [place]. This nurse asked where's her pain and states just all over. Pain score of 5/10.
[2020-02-10] VITALS (10 sets, daily range): BP systolic 90–137; BP diastolic 40–98; PULSE 74–92; TEMP 98–98.4
--- NOTE | 2020-02-10 05:32 | NUR ---
This nurse inquired laboratory about the Platelets to be transfused to patient and they said that there's no definite time when will it arrive. Will update patient.
--- NOTE | 2020-02-10 05:40 | NUR ---
Brisa from Lab called again and says they are expecting the platelets to be here maybe around 8am-10am.
--- NOTE | 2020-02-10 08:33 | NUR ---
PATIENT SITTING UP IN BED EATING BREAKFAST. ASSISTED TO BATHROOM WITH STAND BY ASSIST PER REQUEST. REPORTS NOT ABLE TO SLEEP THROUGH THE IGHT D/T ANXIETY. DENIES C/O PAIN AT THIS TIME. SEE EMAR FOR NEW XANAX ORDER OBTAINED AND ADMINISTERED ORDERED PER PATIENT REQUEST. PATIENT HAS NO OTHER CONCERNS OR REQUEST AT THIS TIME. ASKED ABOUT PLATELET TRANSFUSION. WILL NOTIFIY PATIENT WHEN BLLOD PRODUCT AVAILABLE.
[2020-02-10] MEDS ORDERED: ZOFRAN 4MG T4 MG/TAB PO (08:49)
[2020-02-10] MEDS ORDERED: TRANSDERM-0.5 MG/21 TD (08:51)
[2020-02-10] MEDS ORDERED: ROXANOL 20MG20 MG/ML PO (08:52)
[2020-02-10] MEDS ORDERED: LORAINT PO (08:52)
--- NOTE | 2020-02-10 09:30 | NUR ---
See chart for order to transfuse 2 units of irradiated platelets. Per Lab there order is for [address] Cooper clarified to transfuse 1 unit.
--- NOTE | 2020-02-10 10:05 | NUR ---
Spoke with Varghese from [facility] and they are set up to start care today. We are asked to call hospice and notify time of discharge so their admitting nurse can be present. Мария is sending discharge orders and scripts to them. Family did make it clear to hospice that they do not want a lot of presence at this point as their mother will not want a lot of people around but hospice will be available to see her at least weekly for the time being.
--- NOTE | 2020-02-10 10:35 | NUR ---
Patient to discharge home on Hospice today. RUSSELL contacted Varghese at [facility] and then faxed discharge orders including medications. RUSSELL contacted patient's daughter, Steffany who confirmed she will provide patient transportation upon discharge. RUSSELL collaborated with PRISCILLA Borja who advised patient needs to receive unit of platelets then will be ready for discharge. Either RUSSELL or Huong will notify Steffany when patient is ready for discharge. RUSSELL provided update to Angelika Palliative RN. No additional needs at this time.
--- NOTE | 2020-02-10 12:09 | NUR ---
First visit from the compliance aide. No needs right now.
--- NOTE | 2020-02-10 12:10 | NUR ---
Phone call placed to [facility] to advise anticipated discharge at 2pm. They now are advising me that they have cancelled to the hospice admission at the daughter's request so hospice will not be admitting today and will wait for family to call them in the future. I notified Tahira GALVAN of this information and she will talk with Dr Cooper about situation. Pt is currently getting her platelets now. Primary nurse also advised of this change to discharge plan.
--- NOTE | 2020-02-10 15:04 | NUR ---
PATIENT DC TO HOME ACCOMPANIED BY DAUGHTER SALT CUTTER. PRINTED DC INSTRUCTIONS TO INCLUDE MEDICATIONS AND FOLLOW UP REVIEWED WITH PATIENT. ALL QUESTIONS AND CONCERNS ADDRESSED.
== END 2020-02-10 11:43 | disposition hospice, home (50) | DRG 809 ==
LOC: COL.ER 15:30 → ICU 18:12 → MEDICAL 02-09 18:49
PROVIDERS: Family Medicine; Student in an Organized Health Care Education/Training Program; ADMIT Internal Medicine
DX: D61.810 Antineoplastic chemotherapy induced pancytopenia (principal); C34.90 Malignant neoplasm of unspecified part of unspecified bronchus or lung; C79.31 Secondary malignant neoplasm of brain; T45.1X5A Adverse effect of antineoplastic and immunosuppressive drugs, initial encounter; D61.818 Other pancytopenia; I95.9 Hypotension, unspecified; E03.9 Hypothyroidism, unspecified; R29.810 Facial weakness; Z66 Do not resuscitate; Z51.5 Encounter for palliative care; Z79.891 Long term (current) use of opiate analgesic; Z86.718 Personal history of other venous thrombosis and embolism; Z85.3 Personal history of malignant neoplasm of breast; Z90.710 Acquired absence of both cervix and uterus
CPT/HCPCS: 99223-AI; 99233-AI; 99239; J7030; J7120; P9016; P9037